=== PATIENT | female | born 1945 | race Caucasian/White ===

== ENCOUNTER → 2018-01-25 | Outpatient (CLI) | payer OTHER, BC ==
[~2018-01-25] VITALS: Ht 162.6 cm; Wt 56.7 kg
[~2018-01-25] MED LIST: ALEVE220 MG PO; ASPIR 8181 MG PO; LIPITOR10 MG PO; TRAZODONE HCL100 MG PO
--- NOTE | ~2018-01-25 | P ---
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 She presents for high risk screening colonoscopy due to the history of adenoma. POSTOPERATIVE DIAGNOSIS: Mild diverticulosis coli. MEDICATIONS: Deep sedation with propofol per Anesthesia. SPECIMEN: None. ESTIMATED BLOOD LOSS: None. PROCEDURE: Colonoscopy to cecum and terminal ileum. FINDINGS: Prior to propofol sedation, procedure of colonoscopy discussed with the patient as well as potential risks and its complications. She indicates she understands and desires to proceed. DESCRIPTION OF PROCEDURE: With the patient in left lateral decubitus position, digital examination was completed which revealed no abnormalities. Subsequently, the [employer]pted video colonoscope was introduced in the rectum, advanced under direct vision to the cecum. Done with minimal difficulty. Cecum was identified by the ileocecal valve and appendiceal orifice. I was able to visualize the distal segment of the terminal ileum, which was inspected and noted to be unremarkable. At that point, the scope was slowly withdrawn and careful circumferential views obtained including retroflexing the scope in the ascending colon. Upon slow withdrawal of the scope, the prep was noted to be excellent. Mucosa was within normal limits, normal vascular pattern, normal light reflex. As we withdrew the scope, no neoplastic lesions were seen. No polyps were seen at anytime during this examination. As we withdrew the scope, few very small diverticula were seen in the sigmoid colon without endoscopic evidence of diverticulitis. Scope was withdrawn in the rectum. No abnormalities were seen. Upon retroflexion, no abnormalities were seen. Scope was withdrawn. The patient tolerated the procedure well. CONDITION OF THE PATIENT UPON DISCHARGE: Following procedure, the patient drowsy, aroused and conversant and will be discharged home when fully ambulatory. [facility] [address] [place] [address] PROCEDURE REPORT Name: DAMEONIZABELLA DANIA Room #: [facility]#: [id number] Admission: 01/25/18 Attend Phys: Jaret Ruggiero MD Discharge: Date of : 49 Report #: [id number] INSTRUCTIONS TO THE PATIENT AND FAMILY AT THE TIME OF DISCHARGE: No neoplastic lesions seen on today's exam. However, she did have an advanced adenoma 3 years ago. At this point, I suggest return in 5 years for next colonoscopy. Last colonoscopy was a little more than 3 years ago. Withdrawal time from the cecum was 12 minutes. By: [id number] Jaret Ruggiero MD /nt
== END | disposition home or self-care (01) ==
LOC: GI 07:34
DX: Z09 Encounter for follow-up examination after completed treatment for conditions other than malignant neoplasm (principal); Z86.010 Personal history of colon polyps; K57.30 Diverticulosis of large intestine without perforation or abscess without bleeding; E78.5 Hyperlipidemia, unspecified; Z79.82 Long term (current) use of aspirin; Z98.890 Other specified postprocedural states; Z79.899 Other long term (current) drug therapy
CPT/HCPCS: G0105